=== PATIENT | female | born 1990 | race African-American/Black ===

== ENCOUNTER 2020-11-17 18:13 | Emergency (ER) | payer OTHER, SELFPAY ==
--- NOTE | 2020-11-17 18:17 | ED.LOWEXIN ---
HPI - Extremity Injury (Lower) General Chief Complaint: Extremity Injury, Lower Stated Complaint: right foot pain Time Seen by Provider: 11/17/20 19:00 Source: patient and RN notes reviewed Mode of arrival: ambulatory Limitations: no limitations History of Present Illness HPI Narrative: 30-year-old female presents with concern for right foot pain. She reports circumferential pain to the midfoot. Reports throbbing at rest, worsening pain, sharp pain with weightbearing. 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 Reports pain worsened at work. She denies injury or trauma. Reports history of bad feet . Reports she wears supportive shoes to prevent foot pain. She denies redness, warmth, open skin, bruising, swelling. MD complaint: foot injury Related Data Home Medications Medication Instructions Recorded Confirmed ascorbate calcium (vitamin C) 500 500 mg PO DAILY 04/15/19 03/28/20 mg tablet cholecalciferol (vitamin D3) 25 25 mcg PO DAILY 04/15/19 03/28/20 mcg (1,000 unit) capsule elderberry fruit 460 mg-elderberry cap PO 04/15/19 03/28/20 flower 115 mg capsule multivitamin 1 tablet PO DAILY 04/15/19 03/28/20 Zyrtec 11/17/20 montelukast mg 11/17/20 Allergies Allergy/AdvReac Type Severity Reaction Status Date / Time peanut Allergy Unknown Verified 03/18/20 13:48 Sulfa (Sulfonamide Allergy Unknown Verified 03/18/20 13:48 Antibiotics) tree nut Allergy Unknown Verified 03/18/20 13:48 Review of Systems Review of Systems: CONSTITUTIONAL: Denies malaise, chills, sweats, or fever. SKIN: Denies rash or itching, open skin, redness, bruising, swelling MUSCULOSKELETAL: Reports right foot pain circumferential NEUROLOGIC: Denies numbness, weakness All systems reviewed & are unremarkable except as noted in HPI and below PMFSH Past Medical History Medical History Anemia General counseling and advice for procreative management Herpes Interstitial cystitis Surgical History Surgical History Previous section Social History Social History Smoking status: Never smoker Alcohol intake: never Comments At time of signature, agree with nursing past medical, surgical, social and family history. There is no relevant family history pertinent to the presenting complaint Exam Narrative: GENERAL: Well-appearing, well-nourished, and in no acute distress. HEAD: Normocephalic, atraumatic. EYES: PERRLA, conjunctivae clear NECK: Supple. CHEST: Speaks in full sentences. No respiratory distress. HEART: Regular rate and rhythm. Normal and equal peripheral pulses. EXTREMITIES: Right foot and digits of right foot have normal strength and sensation, normal range of motion. No edema or ecchymosis. 5/5 strength with digit flexion and extension. Normal sensation with sensitivity to light touch and pain. No point tenderness. No open wounds, no skin tenting, no devitalized tissue or atrophy, no trophic changes, no obvious deformity, alignment normal, nearby joints and structures intact. Distal pulses palpable and equal bilaterally, skin warm, dry, pink. Capillary refill less than 3 seconds. SKIN: Warm, dry, no rash. NEURO: Alert and oriented x3. PSYCH: Normal mood and affect Course Course Emergency Course: Patient is aware of diagnosis, understands and agrees to treatment plan. Anticipatory guidance given. Patient agrees to follow-up as directed and is aware of reasons to seek care at the emergency department. Portions of this record may have been created with voice recognition software Vital Signs Vital signs: Reviewed. MDM - Extremity Injury (Lower) MDM Narrative Medical decision making narrative: Patients injury and pain is consistent with musculoskeletal etiology. No signs of neurological or vascular compromise on exam. Compartments and tis
[2020-11-17 18:24] VITALS: BP 124/82; PULSE 82; RESP 16; TEMP 37.2; O2SAT 98
== END 2020-11-17 19:12 | disposition home or self-care (01) ==
PROVIDERS: Emergency Provider Nurse Practitioner; PCP Nurse Practitioner Family
DX: M79.671 Pain in right foot (principal); D64.9 Anemia, unspecified
CPT/HCPCS: 99213; G0463